=== PATIENT | female | born 1990 | race American Indian/Alaskan Native ===

== ENCOUNTER 2018-02-08 21:18 | Emergency (ER) | payer SELFPAY ==
[2018-02-08 22:06] LABS: Basophils # (Auto) 0.1 K/mm3 (0.0-0.1); Basophils % (Auto) 0.7 % (0.0-1.8); Eosinophils % (Auto) 0.4 % (0.0-4.3); Hematocrit 40.6 % (30.3-42.9); Hemoglobin 13.7 gm/dl (10.1-14.3); Lymphocytes # (Auto) 2.7 K/mm3 (1.2-5.4); Lymphocytes % (Auto) 28.4 % (13.4-35.0); Mean Corpuscular HGB Conc 34 % (30-34); Mean Corpuscular Hemoglobin 30 pg (28-32); Mean Corpuscular Volume 89 fl (79-97); Monocytes # (Auto) 0.8 K/mm3 (0.0-0.8); Monocytes % (Auto) 8.6 % (0.0-7.3); Platelet Count 216 K/mm3 (140-440); Red Blood Count 4.57 M/mm3 (3.65-5.03)
[2018-02-08 22:25] LABS: Alanine Aminotransferase 7 units/L (7-56); Albumin 4.4 g/dL (3.9-5); BUN/Creatinine Ratio 14; Blood Urea Nitrogen 7 mg/dL (7-17); Hemolysis Index 3; Lipase 20 units/L (13-60)
[2018-02-08 22:30] LABS: Bacteria,Urine 1+ /HPF (Negative); Bilirubin,Urine NEG (Negative); Blood,Urine NEG (Negative); Color,Urine Amber (Yellow); Mucus,Urine 2+ /HPF
[2018-02-08] MEDS ORDERED: ZOFRAN IV ONE (22:34)
[2018-02-08] MEDS ORDERED: D5NS 1,000 ML IV SCH (23:00)
[2018-02-08] MEDS ORDERED: PEPCID IV ONE (23:10)
--- NOTE | 2018-02-08 23:11 | Emergency Department Report ---
ED N/V/D HPI - General Chief complaint: Nausea/Vomiting/Diarrhea Stated complaint: VOMITING Time Seen by Provider: 02/08/18 22:11 Source: patient Mode of arrival: Ambulatory Limitations: No Limitations - History of Present Illness Initial comments: 28-year-old female with no past medical or abdominal surgical history presents to the hospital complaints of nausea, vomiting, and diarrhea 1 week. Other members in the household had similar symptoms but hers are more persistent. Patient also states she might be with LMP 12/07/2017. Patient has mild occasional specks of blood in her vomitus but denies hung hematemesis, hematochezia, melena, fever, or dysuria. She has mild stabbing intermittent pain to her upper abdomen. She denies recent travel or antibiotic use. - Related Data Previous Rx's Medication Instructions Recorded Last Taken Type Famotidine [Pepcid] 20 mg PO BID #20 tablet 02/09/18 Unknown Rx Ondansetron [Zofran Odt] 4 mg PO Q8HR PRN #20 tab.rapdis 02/09/18 Unknown Rx Vit Calc,Iron,Folic 1 each PO DAILY #30 tablet 02/09/18 Unknown Rx [ Vitamins] Allergies Allergy/AdvReac Type Severity Reaction Status Date / Time No Known Allergies Allergy Unverified 02/08/18 21:43 ED Review of Systems ROS: Stated complaint: VOMITING Other details as noted in HPI Comment: All other systems reviewed and negative ED Past Medical Hx - Past Medical History Previous Medical History?: No - Surgical History Past Surgical History?: No Additional Surgical History: tonsillectomy/adnoids - Social History Smoking Status: Never Smoker Substance Use Type: None - Medications Home Medications: Home Medications Medication Instructions Recorded Confirmed Last Taken Type Famotidine [Pepcid] 20 mg PO BID #20 tablet 02/09/18 Unknown Rx Ondansetron [Zofran Odt] 4 mg PO Q8HR PRN #20 tab.rapdis 02/09/18 Unknown Rx Vit Calc,Iron,Folic 1 each PO DAILY #30 tablet 02/09/18 Unknown Rx [ Vitamins] ED Physical Exam - General Limitations: No Limitations - Other Other exam information: General: No limitations, patient is alert in no acute distress Head exam: Atraumatic, normocephalic Eyes exam: Normal appearance, nonicteric sc;rosario ENT: Dry mucous membrane Neck exam: Normal inspection, full range of motion, no meningismus nontender Respiratory exam: Clear to auscultation bilateral, no wheezes, rales, crackles Cardiovascular: Normal rate and rhythm, normal heart sounds Abdomen: Soft, nondistended, mild epigastric tenderness, with normal bowel sounds, no rebound, or guarding Extremity: Full range of motion normal inspection no deformity Back: Normal Inspection, full range of motion, no tenderness Neurologic: Alert, oriented x3, cranial nerves intact, no motor or sensory deficit Psychiatric: normal affect, normal mood Skin: Warm, dry, intact ED Course Vital Signs 02/08/18 02/08/18 02/08/18 21:40 22:44 22:54 Temperature 97.8 F Pulse Rate 72 Respiratory 18 Rate Blood Pressure 130/70 121/73 121/73 O2 Sat by Pulse 100 99 Oximetry 02/08/18 02/09/18 02/09/18 23:00 00:47 00:48 Temperature 99 F Pulse Rate Respiratory 16 Rate Blood Pressure 121/73 O2 Sat by Pulse 98 99 Oximetry - Reevaluation(s) Reevaluation #1: 02/09/18 00:36 Subchorionic hemorrhage on ultrasound. Patient states her blood type was A negative. Type and screen and ED RhoGAM. Patient reports feeling better and denies nausea or pain at this time 02/09/18 00:41 feeling better with ED tx. n/v/pain resolved ED Medical Decision Making - Lab Data Result diagrams: 02/08/18 21:51 02/08/18 21:51 Lab Results 02/08/18 02/08/18 02/08/18 Range/Units 21:51 21:51 21:51 WBC 9.4 (4.5-11.0) K/mm3 RBC 4.57 (3.65-5.03) M/mm3 Hgb 13.7 (10.1-14.3) gm/dl Hct 40.6 (30.3-42.9) % MCV 89 (79-97) fl MCH 30 (28-32) pg MCHC 34 (30-34) % RDW 14.0 (13.2-15.2) % Plt Count 216 (140-440) K/mm3 Lymph % (Auto) 28.4 (13.4-35.0) % [place] % (Auto) 8.6 H (0.0-7.3) % Eos % (Auto) 0.4 (0.0-4.3) % Baso % (Auto) 0.7 (0.0-1.8) % Lymph # 2.7 (1.2-5.4) K/mm3 [place] # 0.8 (0.0-0.8) K/mm3 Eos # 0.0 (0.0-0.4) K/mm3 Baso # 0.1 (0.0-0.1) K/mm3 Seg Neutrophils % 61.9 (40.0-70.0) % Seg Neutrophils # 5.8 (1.8-7.7) K/mm3 Sodium 134 L (137-145) mmol/L Potassium 4.1 (3.6-5.0) mmol/L Chloride 96.6 L (98-107) mmol/L Carbon Dioxide 22 (22-30) mmol/L Anion Gap 20 mmol/L BUN 7 (7-17) mg/dL Creatinine 0.5 L (0.7-1.2) mg/dL Estimated GFR > 60 ml/min BUN/Creatinine Ratio 14 % Glucose 78 (65-100) mg/dL Calcium 9.0 (8.4-10.2) mg/dL Total Bilirubin 0.50 (0.1-1.2) mg/dL AST 13 (5-40) units/L ALT 7 (7-56) units/L Alkaline Phosphatase 71 (35-129) units/L Total Protein 7.7 (6.3-8.2) g/dL Albumin 4.4 (3.9-5) g/dL Albumin/Globulin Ratio 1.3 % Lipase 20 (13-60) units/L HCG, Quant [id number] H (0-4) mIU/mL Urine Color (Yellow) Urine Turbidity (Clear) Urine pH (5.0-7.0) Ur Specific [place] (1.003-1.030) Urine Protein (Negative) mg/dL Urine Glucose (UA) (Negative) mg/dL Urine Ketones (Negative) mg/dL Urine Blood (Negative) Urine Nitrite (Negative) Urine Bilirubin (Negative) Urine Urobilinogen (<2.0) mg/dL Ur Leukocyte Esterase (Negative) Urine WBC (Auto) (0.0-6.0) /HPF Urine RBC (Auto) (0.0-6.0) /HPF U Epithel Cells (Auto) (0-13.0) /HPF Urine Bacteria (Auto) (Negative) /HPF Urine Mucus /HPF 02/08/18 Range/Units Unknown WBC (4.5-11.0) K/mm3 RBC (3.65-5.03) M/mm3 Hgb (10.1-14.3) gm/dl Hct (30.3-42.9) % MCV (79-97) fl MCH (28-32) pg MCHC (30-34) % RDW (13.2-15.2) % Plt Count (140-440) K/mm3 Lymph % (Auto) (13.4-35.0) % [place] % (Auto) (0.0-7.3) % Eos % (Auto) (0.0-4.3) % Baso % (Auto) (0.0-1.8) % Lymph # (1.2-5.4) K/mm3 [place] # (0.0-0.8) K/mm3 Eos # (0.0-0.4) K/mm3 Baso # (0.0-0.1) K/mm3 Seg Neutrophils % (40.0-70.0) % Seg Neutrophils # (1.8-7.7) K/mm3 Sodium (137-145) mmol/L Potassium (3.6-5.0) mmol/L Chloride (98-107) mmol/L Carbon Dioxide (22-30) mmol/L Anion Gap mmol/L BUN (7-17) mg/dL Creatinine (0.7-1.2) mg/dL Estimated GFR ml/min BUN/Creatinine Ratio % Glucose (65-100) mg/dL Calcium (8.4-10.2) mg/dL Total Bilirubin (0.1-1.2) mg/dL AST (5-40) units/L ALT (7-56) units/L Alkaline Phosphatase (35-129) units/L Total Protein (6.3-8.2) g/dL Albumin (3.9-5) g/dL Albumin/Globulin Ratio % Lipase (13-60) units/L HCG, Quant (0-4) mIU/mL Urine Color [place]asha (Yellow) Urine Turbidity Clear (Clear) Urine pH 6.0 (5.0-7.0) Ur Specific [place] 1.030 (1.003-1.030) Urine Protein 30 mg/dl (Negative) mg/dL Urine Glucose (UA) Neg (Negative) mg/dL Urine Ketones 20 (Negative) mg/dL Urine Blood Neg (Negative) Urine Nitrite Neg (Negative) Urine Bilirubin Neg (Negative) Urine Urobilinogen 4.0 (<2.0) mg/dL Ur Leukocyte Esterase Mod (Negative) Urine WBC (Auto) 4.0 (0.0-6.0) /HPF Urine RBC (Auto) 4.0 (0.0-6.0) /HPF U Epithel Cells (Auto) 39.0 H (0-13.0) /HPF Urine Bacteria (Auto) 1+ (Negative) /HPF Urine Mucus 2+ /HPF - Radiology Data Radiology results: report reviewed Transvaginal/pelvic OB ultrasound IMPRESSION: Single live IUP. Estimated gestational age 9 weeks 4 days. Estimated delivery date September 09, 2018. Small subchorionic hemorrhage. ABD US No acute findings - Medical Decision Making Nausea, vomiting, and diarrhea likely secondary to viral gastroenteritis given the multiple family members with similar symptoms recently. Patient's symptoms likely persisting secondary to newly diagnosed . Subchorionic hemorrhage identified. No posterior vaginal bleeding. ED RhoGAM and type and screen ordered since Blood type confirmed A- - Differential Diagnosis , hyperemesis, gastroenteritis, infection Critical Care Time: No Critical care attestation.: If time is entered above; I have spent that time in minutes in the direct care of this critically ill patient, excluding procedure time. ED Disposition Clinical Impression: Gastroenteritis, 9 weeks gestation of , Subchorionic hematoma in first trimester, Need for rhogam due to Rh negative mother Disposition: DC-01 TO HOME OR SELFCARE Is pt being admited?: No Does the pt Need Aspirin: No Condition: Stable Instructions: (ED), Gastroenteritis (ED) Additional Instructions: Take Tylenol as needed for pain. You received a RhoGAM shot in the ER because there is some blood in your uterus. You may notice vaginal spotting if the blood exits the uterus through your vagina. You need to return to the ER immediately if bleeding is greater than 1 pad per hour or have significant abdominal pain. Otherwise follow-up with your [facility] doctor with the doctor provided for further evaluation and treatment. Return if symptoms worsen as indicated by your discharge instructions Prescriptions: Famotidine [Pepcid] 20 mg PO BID #20 tablet Ondansetron [Zofran Odt] 4 mg PO Q8HR PRN #20 tab.rapdis PRN Reason: Nausea And Vomiting Vit Calc,Iron,Folic [ Vitamins] 1 each PO DAILY #30 tablet Referrals: KASIE SMITH MD [Primary Care Provider] - 3-5 Days TOM FRASER MD [Staff Physician] - 3-5 Days Time of Disposition: 01:39 (d/c after rhogam)
--- NOTE | 2018-02-09 00:24 | Ultrasound Report ---
FINAL REPORT EXAM: US ABDOMEN COMPLETE HISTORY: n,v COMPARISON: None available. TECHNIQUE: Several real-time grayscale and color Doppler images were obtained. FINDINGS: Homogeneous echogenicity the visualized portions of the liver. Visualized aorta is normal in caliber. No shadowing gallstones or gallbladder wall thickening. The common bile duct measures 2 millimeters within normal limits. Visualized portions the pancreas unremarkable. The spleen measures 10.2 centimeters in length within normal limits. Right kidney measures 11.3 centimeters in length. Left kidney measured 10.9 centimeters in length. No gross focal renal lesion hydronephrosis. Visualized portal vein is patent. IMPRESSION: No acute abdominal organ abnormality.
--- NOTE | 2018-02-09 00:27 | Ultrasound Report ---
FINAL REPORT EXAM: US OB < = 14 WEEKS FETUS HISTORY: n,v COMPARISON: None available. TECHNIQUE: Several real-time grayscale and color Doppler images were obtained. Transabdominal and transvaginal exam. FINDINGS: The uterus measures 11.1 x 6.4 x 8.3 centimeters. Single live IUP. Estimated gestational age 9 weeks 4 days. Estimated delivery date September 09, 2018. heart rate 165 beats per minute. Yolk sac is present. Small subchorionic hemorrhage measuring 0.9 x 1.5 x 1.7 centimeters at the inferior margin of the gestational sac. The cervix is closed. No adnexal masses are demonstrated. Ovaries are not visualized. IMPRESSION: Single live IUP. Estimated gestational age 9 weeks 4 days. Estimated delivery date September 09, 2018. Small subchorionic hemorrhage.
--- NOTE | 2018-02-09 00:27 | Ultrasound Report ---
FINAL REPORT EXAM: US OB TRANSVAGINAL HISTORY: n,v COMPARISON: None available. TECHNIQUE: Several real-time grayscale and color Doppler images were obtained. Transabdominal and transvaginal exam. FINDINGS: The uterus measures 11.1 x 6.4 x 8.3 centimeters. Single live IUP. Estimated gestational age 9 weeks 4 days. Estimated delivery date September 09, 2018. heart rate 165 beats per minute. Yolk sac is present. Small subchorionic hemorrhage measuring 0.9 x 1.5 x 1.7 centimeters at the inferior margin of the gestational sac. The cervix is closed. No adnexal masses are demonstrated. Ovaries are not visualized. IMPRESSION: Single live IUP. Estimated gestational age 9 weeks 4 days. Estimated delivery date September 09, 2018. Small subchorionic hemorrhage.
[2018-02-09 00:48] VITALS: BP 121/73
== END 2018-02-09 02:18 | disposition home or self-care (01) ==
LOC: ED 21:18
DX: O26.891 Other specified pregnancy related conditions, first trimester (principal); K52.9 Noninfective gastroenteritis and colitis, unspecified; Z3A.09 9 weeks gestation of pregnancy
CPT/HCPCS: 36415; 76700; 76801; 76817; 80053; 81001; 83690; 84702; 85025; 86850; 86900; 86901; 96365; 96375; 99284; J2405; J2790; J7042

== ENCOUNTER 2018-06-25 16:21 | Outpatient (CLI) | payer OTHER ==
[2018-06-25 16:48] VITALS: BP 102/51
[2018-06-25 17:46] LABS: Bacteria,Urine 2+ /HPF (Negative); Bilirubin,Urine NEG (Negative); Blood,Urine NEG (Negative); Calcium Oxalate Crystals,Urine 2+; Color,Urine Amber (Yellow); Mucus,Urine 2+ /HPF
== END 2018-06-25 18:17 | disposition home or self-care (01) ==
LOC: TRG 16:21
PROVIDERS: ATTEND Obstetrics & Gynecology
DX: O26.893 Other specified pregnancy related conditions, third trimester (principal); N89.8 Other specified noninflammatory disorders of vagina; Z3A.28 28 weeks gestation of pregnancy
CPT/HCPCS: 59025; 81001

== ENCOUNTER 2020-08-30 12:02 | Inpatient (IN) | payer OTHER, SELFPAY ==
[2020-08-30] MEDS ORDERED: LACTATED RINGERS 1,000 ML IV SCH ×2 (14:00→16:00)
[2020-08-30 14:19] LABS: Basophils % (Auto) 0.6 % (0.0-1.8); Eosinophils % (Auto) 0.5 % (0.0-4.3); Hematocrit 35.4 % (30.3-42.9); Lymphocytes # (Auto) 1.9 K/mm3 (1.2-5.4); Lymphocytes % (Auto) 27.2 % (13.4-35.0); Mean Corpuscular HGB Conc 34 % (30-34); Mean Corpuscular Volume 91 fl (79-97); Monocytes # (Auto) 0.6 K/mm3 (0.0-0.8); Monocytes % (Auto) 8.7 % (0.0-7.3); Platelet Count 172 K/mm3 (140-440); Red Blood Count 3.89 M/mm3 (3.65-5.03); Red Cell Distribution Width 14.3 % (13.2-15.2)
[2020-08-30] MEDS ORDERED: ACETAMINOPHEN 500 MG TAB PO ONE (15:24)
[2020-08-30 15:43] LABS: Hepatitis C Virus Antibody Non-Reactive (NonReactive)
[2020-08-30] MEDS ORDERED: LIDOCAINE (2%) 20 MG/1 ML VIAL 20 ML MDV INFILTRATI ONE (16:00)
[2020-08-30] MEDS ORDERED: ONDANSETRON 4 MG/2 ML INJ IV PRN ×2 (16:00→16:48)
[2020-08-30] MEDS ORDERED: NALOXONE 0.4 MG/1 ML INJ IV PRN (16:00)
[2020-08-30] MEDS ORDERED: ACETAMINOPHEN 500 MG TAB PO PRN ×3 (16:00→23:36)
[2020-08-30] MEDS ORDERED: fentaNYL 100 MCG/2 ML INJ IV PRN (16:00)
[2020-08-30] MEDS ORDERED: TERBUTALINE 1 MG/1 ML INJ SUB-Q PRN (16:00)
[2020-08-30] MEDS ORDERED: ePHEDrine SULFATE 50 MG/1 ML INJ IV PRN (16:00)
[2020-08-30] MEDS ORDERED: OXYTOCIN DRIP 30 UNITS/500 ML BAG IV SCH (16:00)
[2020-08-30] MEDS ORDERED: CARBOPROST TROMETHAMINE 250 MCG/1 ML INJ IM PRN (16:00)
[2020-08-30] MEDS ORDERED: OXYTOCIN 10 UNIT/1 ML INJ IM PRN (16:00)
[2020-08-30] MEDS ORDERED: METHYLERGONOVINE MALEATE 0.2 MG/ML VIAL IM PRN (16:00)
[2020-08-30] MEDS ORDERED: LOPERAMIDE 2 MG CAP PO PRN (16:00)
[2020-08-30] MEDS ORDERED: MINERAL OIL 30 ML ORAL LIQD PO PRN (16:00)
[2020-08-30] MEDS ORDERED: PROMETHAZINE 25 MG TAB PO PRN ×2 (16:00→16:48)
--- NOTE | 2020-08-30 16:18 | History and Physical Report ---
History of Present Illness Date of examination: 08/30/20 Date of admission: 08/30/2020 Chief complaint: I've been having ctxs. History of present illness: Pt is a 30 y.o. @ unknown gestation d/t no PNC. Ultrasound ordered and showed 35.1 wks with EDC of 10/03/2020. Pt has no medical history. Surgical history, tonsils removed as a child. Denies drug and alcohol use. Has never smoked. Denies abnormal PAPs. X 5, all term with no complications. States that she wants to give this infant up for adoption. She is a single mother. Past History Past Medical History: no pertinent history Past Surgical History: tonsillectomy Family/Genetic History: none Social history: single - Obstetrical History Expected Date of Delivery: 10/03/20 (By ultrasound in triage today) Actual Gestation: 35 Week(s) 1 Day(s) : 6 Para: 5 Hx # Term Pregnancies: 5 Number of Pregnancies: 0 Spontaneous Abortions: 0 Induced : 0 Number of Living Children: 5 Medications and Allergies Allergies Allergy/AdvReac Type Severity Reaction Status Date / Time No Known Allergies Allergy Verified 08/30/20 12:43 Home Medications Medication Instructions Recorded Confirmed Last Taken Type Famotidine [Pepcid] 20 mg PO BID #20 tablet 02/09/18 Unknown Rx Ondansetron [Zofran Odt] 4 mg PO Q8HR PRN #20 tab.rapdis 02/09/18 Unknown Rx Vit Calc,Iron,Folic 1 each PO DAILY #30 tablet 02/09/18 Unknown Rx [ Vitamins] Ampicillin 500 mg PO Q6H #14 capsule 06/25/18 Unknown Rx Active Meds: Active Medications Acetaminophen (Tylenol) 1,000 mg PO Q6H PRN PRN Reason: Pain, Mild (1-3) Carboprost Tromethamine (Hemabate) 250 mcg IM ONCE PRN PRN Reason: Uterine Bleeding Ephedrine Sulfate (Ephedrine Sulfate) 10 mg IV Q2M PRN PRN Reason: Hypotension Fentanyl (Sublimaze) 100 mcg IV Q2H PRN PRN Reason: Pain,Severe (7-10) LABOR PAIN Lactated Ringer's (Lactated Ringers) 1,000 mls @ 150 mls/hr IV DIRECT PAMELA Lactated Ringer's (Lactated Ringers) 1,000 mls @ 125 mls/hr IV DIRECT PAMELA Oxytocin/Sodium Chloride (Pitocin/Ns 30 Unit/500ml) 30 units in 500 mls @ 40 mls/hr IV TITR PAMELA; Protocol Ampicillin Sodium (Ampicillin/Ns 2 Gm/100 Ml) 2 gm in 100 mls @ 100 mls/hr IV ONCE ONE; Protocol Stop: 08/30/20 17:59 Loperamide HCl (Imodium) 2 mg PO ONCE PRN PRN Reason: give with Hemabate Methylergonovine Maleate (Methergine) 0.2 mg IM ONCE PRN PRN Reason: Uterine Bleeding Mineral Oil (Mineral Oil) 30 ml PO QHS PRN PRN Reason: Constipation Naloxone HCl (Naloxone) 0.1 mg IV Q2MIN PRN PRN Reason: Res Rate </= 8 or 02 SAT < 92% Ondansetron HCl (Zofran) 4 mg IV Q8H PRN PRN Reason: Nausea And Vomiting Oxytocin (Pitocin) 10 unit IM ONCE PRN PRN Reason: Uterine Bleeding Promethazine HCl (Phenergan) 25 mg PO Q6H PRN PRN Reason: Nausea And Vomiting Terbutaline Sulfate (Brethine) 0.25 mg SUB-Q ONCE PRN PRN Reason: Hyperstimulation/Hypertonicity Review of Systems All systems: negative - Vital Signs Vital signs: Vital Signs Pulse Pulse Ox 56 L 100 08/30/20 12:41 08/30/20 12:41 Temp Pulse Resp BP Pulse Ox 98.2 F 55 L 20 132/72 100 08/30/20 12:44 08/30/20 15:13 08/30/20 12:44 08/30/20 12:45 08/30/20 15:13 - Physical Exam Breasts: Positive: deferred Cardiovascular: Regular rate Lungs: Positive: Normal air movement Abdomen: Positive: normal appearance, soft Genitourinary (Female): Positive: normal external genitalia, normal perenium Vulva: both: normal Vagina: Positive: normal moisture. Negative: discharge Cervix: Negative: lesion, discharge Uterus: Positive: normal size, normal contour Adnexa: both: normal Anus/Rectum: Positive: normal perianal skin, heme negative. Negative: rectal mass, hemorrhoids Extremities: Positive: normal Deep Tendon Reflex Grade: Normal +2 - Obstetrical FHR: category 1 Uterine Contraction Monitor Mode: External Cervical Dilatation: 6 Cervical Effacement Percentage: 100 station: -2 Uterine Contraction Pattern: Regular Uterine Tone Measurement Phase: Resting Uterine Contraction Intensity: Moderate Results Result Diagrams: 08/30/20 14:01 Abnormal lab results 08/30/20 Range/Units 14:01 [place] % (Auto) 8.7 H (0.0-7.3) % All other labs normal. GBS UNKNOWN LABS DRAWN ON ADMISSION Assessment and Plan A: 30 y.o. @35.1 wks by today's triage u/s in active labor. Ce rvical exam /-2. P: Will admit to labor and delivery for active labor, expectant manag ement. Antibiotics for GBS unknown. Consult case management for placement and mother with no PNC. - Patient Problems (1) labor in third trimester Onset Date: ~08/30/20 Current Visit: Yes Status: Acute Qualifiers: labor delivery status: without delivery Qualified Code(s): O60.03 - labor without delivery, third trimester Plan to address problem: Monitor status by EFM. Ultrasound in triage revealed 35.1 wks gestation. Will admit for expectant management. Antibiotics for prophylaxis for GBS unknown and . (2) 35 to 36 weeks gestation of Onset Date: ~08/30/20 Current Visit: Yes Status: Acute Plan to address problem: Monitor maternal and status. (3) No care in current Onset Date: ~08/30/20 Current Visit: Yes Status: Acute Qualifiers: Trimester: third trimester Qualified Code(s): O09.33 - Supervision of with insufficient care, third trimester Plan to address problem: Will place case management consult d/t no PNC and pt wishing to give infant up for adoption.
--- NOTE | 2020-08-30 16:47 | Procedure Note ---
OB Delivery Note - Delivery Date of Delivery: 08/30/20 Digital Marketing Assistant: JUAN CARLOS STEPHENSON Estimated blood loss: 200cc - Vaginal Delivery presentation: vertex Delivery position: OA Intrapartum events: no care, labor-<37 weeks, PROM->1hr before delivery (clear fluid) Delivery induction: none Delivery monitor: external FHT, external uterine Route of delivery: Delivery placenta: spontaneous Delivery cord: 3 umbilical vessels Episiotomy: none Delivery laceration: none Anesthesia: none Delivery comments: Pt with SROM @ 1600 for clear fluid and progressed to complete at 1620. of viable 35.1 wk female over intact perineum. Cord cut and clamped and infant to warmer for assessment by JENNIE team. Spontaneous delivery of placenta, intact, 3 vessel cord, complete, and sent to pathology. Inspection of perineum found no lacerations. Fundus firm, minimal bleeding noted. weight 5-8. Apgars 9,9. EBL 200 ml. Mother holding at this time. Mother and infant left in care of RN, in stable condition. - Infant A at 1 minute: 9 at 5 minutes: 9 Infant Gender: Female
[2020-08-30] MEDS ORDERED: IBUPROFEN 800 MG TAB ONE (16:48)
[2020-08-30] MEDS ORDERED: BENZOCAINE/MENTHOL 20/0.5% TOP SPRAY 56 GM TP PRN (16:48)
[2020-08-30] MEDS ORDERED: WITCH HAZEL/ GLYCERIN PAD TP PRN (16:48)
[2020-08-30] MEDS ORDERED: diphenhydrAMINE 25 MG CAP PO PRN (16:48)
[2020-08-30] MEDS ORDERED: LANOLIN/ZINC/DIMETHICONE (LANSINOH) 7 GM TP PRN (16:48)
[2020-08-30] MEDS ORDERED: MAGNESIUM HYDROXIDE (MOM) ORAL LIQD UDC PO PRN (16:48)
[2020-08-30] MEDS: IBUPROFEN 800 MG TAB PO SCH (16:50)
[2020-08-30] MEDS ORDERED: AMPICILLIN/NS 2 GM/100 ML 2 GM/100 ML BAG IV ONE (17:00)
--- NOTE | 2020-08-30 17:37 | Consultation ---
Consult Note - Parent Education Additional Comment: Attempted to see mother for consult but alre kami delivered. Attempted to speak with mother regarding POC for 35 week infant, mother on the phone and unable to have conversation. Advised we will check blood glucose levels and evaluate how is feeding since 35 weeks. Mother nodded in agreement.
--- NOTE | 2020-08-30 18:07 | Event Note ---
Date: 08/30/20 (Mother holding ) Case management consult order placed d/t on PNC and possible infant adoption. Initially mother did not want to hold and see infant, but is now holding . Case management aware of patient admission and will come to see patient.
--- NOTE | 2020-08-30 18:46 | Ultrasound Report ---
ULTRASOUND OBSTETRIC FOLLOW-UP ULTRASOUND BIOPHYSICAL PROFILE INDICATION / CLINICAL INFORMATION: [facility]. Clinical Gestational Age (GA): Unknown COMPARISON: None available. FINDINGS: There is a single intrauterine . Biparietal Diameter = 8.4 cm = 34 weeks. 0 days Head Circumference = 30 cm = 33 weeks. 2 days Abdominal Circumference = 32.6 cm = 36 weeks. 4 days Femur Length = 7.1 cm = 36 weeks. 4days Average Ultrasound Age (AUA) = 35 weeks. 1 days Estimated Weight in grams (if calculated): 2785 Position: cephalic. Cervix: Incompletely visualized on this exam. Placenta: Grade 2, fundal, and free of the os. Amniotic Fluid Volume: normal Amniotic Fluid Index (LUCY) in cm (if calculated): 15.8. Maternal Adnexa: No significant abnormality. BREATHING MOVEMENT = 2 GROSS BODY MOVEMENT = 2 TONE = 2 QUALITATIVE AMNIOTIC FLUID VOLUME = 2 TOTAL BIOPHYSICAL SCORE = 8/8 HEART RATE (beats per minute): 140 ADDITIONAL FINDINGS: None. IMPRESSION: 1. Single viable intrauterine with average ultrasound age of 35 weeks 1 day. 2. Biophysical Score = 8/8 Signer Name: Vince Stout MD Signed: 08/30/2020 6:42 PM Workstation Name: [id number]
[2020-08-30 19:05] LABS: Bilirubin,Urine NEG (Negative); Blood,Urine LG (Negative); Color,Urine Red (Yellow)
[2020-08-30 19:08] LABS: Amphetamine Screen,Urine Negative; Benzodiazepines Screen,Urine Negative; Cocaine Screen,Urine Negative; Methadone Screen,Urine Negative; Opiate Screen,Urine Negative; RBC,Urine > 182.0 /HPF (0.0-6.0)
[2020-08-30 19:33] LABS: Cannabinoid Screen,Urine Positive
[2020-08-30] MEDS ORDERED: ACETAMINOPHEN W/CODEINE 300-30 MG TAB PO ONE (21:18)
[2020-08-30] MEDS: DOCUSATE SODIUM 100 MG CAP PO SCH (21:29)
[2020-08-31] MEDS ORDERED: ACETAMINOPHEN 500 MG TAB PO SCH (03:00)
[2020-08-31 05:20] LABS: Hematocrit 32.7 % (30.3-42.9); Hemoglobin 11.1 gm/dl (10.1-14.3)
[2020-08-31] MEDS ORDERED: DIPHtheria,PERTUSSIS(ACELL),TETANUS VACCINE/PF 0.5 ML VIAL IM ONE (06:00)
[2020-08-31] MEDS: PRENATAL VIT27-FE FUMARATE-FOLIC ACID VIT TAB PO SCH (09:05)
[2020-08-31] MEDS: IBUPROFEN 800 MG TAB PO SCH ×2 (09:05→18:00)
[2020-08-31] MEDS: DOCUSATE SODIUM 100 MG CAP PO SCH (09:05)
--- NOTE | 2020-08-31 13:38 | Progress Note ---
Assessment and Plan Probably allow home tomorrow She desires sterilization - Patient Problems (1) No care in current Onset Date: ~08/30/20 Current Visit: Yes Status: Acute Qualifiers: Trimester: third trimester Qualified Code(s): O09.33 - Supervision of with insufficient care, third trimester (2) Spontaneous vaginal delivery Current Visit: Yes Status: Acute Subjective - Subjective Date of service: 08/31/20 Principal diagnosis: PPD #1 s/p , NPC Patient reports: appetite normal, voiding normally, pain well controlled, ambulating normally Objective - Vital Signs Latest vital signs: Vital Signs Temp Pulse Resp BP BP Pulse Ox 08/31/20 10:14 97.9 F 61 18 120/63 98 08/31/20 04:33 97.9 F 46 L 20 128/65 100 08/31/20 00:41 97.7 F 56 L 20 125/76 100 08/30/20 21:30 18 08/30/20 20:25 97.6 F 57 L 20 111/68 96 08/30/20 17:50 68 131/64 08/30/20 17:35 57 L 127/67 08/30/20 17:20 51 L 116/66 08/30/20 17:04 56 L 131/61 08/30/20 16:35 74 113/64 08/30/20 16:33 98.3 F 74 16 113/64 98 08/30/20 15:13 55 L 100 08/30/20 15:08 62 100 08/30/20 15:03 62 100 08/30/20 14:58 61 100 08/30/20 14:53 55 L 100 08/30/20 14:48 66 100 08/30/20 14:43 54 L 99 08/30/20 14:38 61 99 08/30/20 14:33 57 L 99 08/30/20 14:28 55 L 99 08/30/20 14:23 58 L 100 08/30/20 14:18 61 99 08/30/20 14:13 59 L 99 08/30/20 14:08 62 100 08/30/20 14:03 60 99 08/30/20 13:58 60 100 08/30/20 13:53 58 L 99 08/30/20 13:48 64 100 08/30/20 13:43 64 99 08/30/20 13:39 60 90 08/30/20 13:36 56 L 99 Intake and Output 08/30/20 08/31/20 08/31/20 22:59 06:59 14:59 Intake Total 200 440 240 Output Total 200 1000 Balance 0 -560 240 Intake: Oral 200 440 240 Output: Urine 200 1000 Void 200 1000 Other: Total, Intake Amount 200 200 240 Total, Output Amount 200 600 # Voids Void 1 Estimated Blood Loss 200 - Exam Breasts: Present: deferred (Presently breast feeding) Lungs: Present: Normal air movement Abdomen: Present: normal appearance, soft. Absent: distention, tenderness Uterus: Present: fundal height below umbilicus. Absent: tenderness Extremities: Present: normal. Absent: tenderness, edema - Labs Labs: Abnormal lab results 08/30/20 08/30/20 Range/Units 14:01 18:07 [place] % (Auto) 8.7 H (0.0-7.3) % Urine pH 8.0 H (5.0-7.0) Urine WBC (Auto) 22.0 H (0.0-6.0) /HPF
[2020-09-01] MEDS: IBUPROFEN 800 MG TAB PO SCH ×2 (02:01→10:24)
[2020-09-01] MEDS: DOCUSATE SODIUM 100 MG CAP PO SCH ×2 (02:01→10:24)
[2020-09-01] MEDS: PRENATAL VIT27-FE FUMARATE-FOLIC ACID VIT TAB PO SCH (10:24)
--- NOTE | 2020-09-01 12:41 | Discharge Summary ---
Providers - Providers Date of Admission: 08/30/20 16:49 Date of discharge: 09/01/20 Attending physician: TIO ESPINOZA 08/30/20 16:18 Consult to Case Management [CONS] Urgent Services Needed at Discharge: Gender Studies Professor Notified:: Jo Phone number called:: [phone] Was contact made?: Yes If yes, spoke with:: Jo Time called:: 16:15 Additional Physician Instructions: Pt is no PNC and putting infant up for adoption. 08/30/20 16:20 Consult to Physician [CONS] Urgent Comment: Consulting Provider: KRISTOPHER CAMPBELL Physician Instructions: Pt is no PNC, u/s putting gestation at 35.1 wks Reason For Exam: No PNC, labor Primary care physician: FREIGHT INSPECTOR Hospitalization Reason for admission: active labor Delivery: Episiotomy: none Laceration: none complications: none Discharge diagnosis: IUP at term delivered Mcdonald baby: female Hospital course: Normal. Patient complains of ? ear infection after having Covid-19 swab performed o/w desires d/c home Condition at discharge: Good Disposition: DC-01 TO HOME OR SELFCARE - Discharge Diagnoses (1) No care in current Status: Acute Qualifiers: Trimester: third trimester Qualified Code(s): O09.33 - Supervision of with insufficient care, third trimester (2) Spontaneous vaginal delivery Status: Acute (3) Sterilization Status: Acute (4) Otitis Status: Acute Qualifiers: Laterality: right Qualified Code(s): H66.91 - Otitis media, unspecified, right ear Plan - Discharge Medications Prescriptions: Amoxicillin [Trimox CAP] 500 mg PO Q8H #15 capsule - Provider Discharge Summary Activity: routine, no sex for 6 weeks, no heavy lifting 4 weeks, no strenuous exercise Diet: routine Instructions: routine Additional instructions: [] Smoking cessation referral if applicable(refer to patient education folder for contact #) [] Refer to [facility] Booklet Call your doctor immediately for: * Fever > 100.5 * Heavy vaginal bleeding ( >1 pad per hour) * Severe persistent headache * Shortness of breath * Reddened, hot, painful area to leg or breast * Drainage or odor from incision. * Keep incision clean and dry at all times and follow doctor's instructions regarding bathing/showering - Follow up plan Follow up: PRIMARY CARE, [Primary Care Provider] - 7 Days TIO ESPINOZA MD [Staff Physician] - 10 Days
[2020-09-01 16:38] VITALS: BP 115/70
== END 2020-09-01 17:00 | disposition home or self-care (01) | DRG 807 ==
LOC: TRG 12:02 → APU 12:04 → TRG 16:10 → LD 16:49 → OB 20:38
PROVIDERS: ADMIT Obstetrics & Gynecology; ATTEND Obstetrics & Gynecology
PROC: 10E0XZZ Delivery of Products of Conception, External Approach (ICD-10-PCS; principal; 2020-08-30)
PROC: 3E0234Z Introduction of Serum, Toxoid and Vaccine into Muscle, Percutaneous Approach (ICD-10-PCS; 2020-08-31)
PROC: 30233S1 Transfusion of Nonautologous Globulin into Peripheral Vein, Percutaneous Approach (ICD-10-PCS; 2020-08-31)
DX: O60.14X0 Preterm labor third trimester with preterm delivery third trimester, not applicable or unspecified (principal); Z37.0 Single live birth; O42.013 Preterm premature rupture of membranes, onset of labor within 24 hours of rupture, third trimester; Z3A.35 35 weeks gestation of pregnancy; Z20.828 Contact with and (suspected) exposure to other viral communicable diseases; Z23 Encounter for immunization; O99.73 Diseases of the skin and subcutaneous tissue complicating the puerperium; H66.91 Otitis media, unspecified, right ear
CPT/HCPCS: 36415; 76816; 76819; 80307; 81001; 85014; 85018; 85025; 85461; 86592; 86706; 86762; 86803; 86850; 86900; 86901; 87086; 87806; 88307; G0378; J2790; U0003

== ENCOUNTER 2020-12-26 20:42 | Emergency (ER) | payer MEDICAID ==
[2020-12-26] MEDS ORDERED: LIDOCAINE VISCOUS 2% 15 ML ORAL LIQD PO ONE (21:36)
[2020-12-26] MEDS ORDERED: ONDANSETRON 4 MG ODT TAB PO ONE (21:36)
[2020-12-26] MEDS ORDERED: ACETAMINOPHEN 500 MG TAB PO ONE (21:36)
[2020-12-26] MEDS ORDERED: AMOXICILLIN/K CLAV 875/125MG TAB PO ONE (21:37)
--- NOTE | 2020-12-26 21:43 | Emergency Department Report ---
ED General Adult HPI - General Chief complaint: Sore Throat Stated complaint: EAR AND THROAT PAIN Source: patient Mode of arrival: Ambulatory Limitations: No Limitations - History of Present Illness Initial comments: Patient is a 30 yo AA female with no past medical history who presents to the ED with c/o acute onset persistent severe sore throat, dysphagia, drooling, right ear pain and painful swollen anterior right cervical lymph nodes for the last 2 days. Patient also c/o diffuse body aches, chills and fever. Patient states that she has not been able to eat or drink anything since the onset of these symptoms due to severe sore throat. Patient denies dyspnea, nausea, vomiting, chest pain, dizziness, cough, nasal and sinus congestion, abdominal pain, diarrhea or dysuri a, hematuria or urinary urgency and frequency. MD Complaint: Sore throat; right ear pain, anterior cervical lymph node pain -: Sudden, days(s) (2) Location: mouth Radiation: non-radiation Severity scale (0 -10): 8 Quality: burning, aching, sharp, constant Consistency: constant Improves with: none Worsens with: eating, other (swallowing) Associated Symptoms: denies other symptoms, fever/chills, headaches, loss of appetite, malaise. denies: confusion, chest pain, cough, diaphoresis, nausea/vomiting, rash, seizure, shortness of breath, syncope, weakness Treatments Prior to Arrival: none - Related Data Previous Rx's Medication Instructions Recorded Last Taken Type Famotidine [Pepcid] 20 mg PO BID #20 tablet 02/09/18 Unknown Rx Vit Calc,Iron,Folic 1 each PO DAILY #30 tablet 02/09/18 Unknown Rx [ Vitamins] Ampicillin 500 mg PO Q6H #14 capsule 06/25/18 Unknown Rx Acetaminophen [Tylenol] 1,000 mg PO Q6HR PRN #30 tablet 12/26/20 Unknown Rx Amoxicillin [Trimox CAP] 500 mg PO Q8H #30 capsule 12/26/20 Unknown Rx Lidocaine Viscous 2% 10 ml PO Q6H PRN #120 ml 12/26/20 Unknown Rx Ondansetron [Zofran ODT TAB] 4 mg PO Q8HR PRN #20 tab.rapdis 12/26/20 Unknown Rx Allergies Allergy/AdvReac Type Severity Reaction Status Date / Time No Known Allergies Allergy Verified 08/30/20 12:43 ED Review of Systems ROS: Stated complaint: EAR AND THROAT PAIN Other details as noted in HPI Constitutional: chills, fever, malaise Eyes: denies: eye pain, eye discharge, vision change ENT: ear pain (right ear pain), throat pain, congestion Respiratory: denies: cough, shortness of breath, SOB with exertion, wheezing Cardiovascular: denies: chest pain, palpitations Endocrine: no symptoms reported Gastrointestinal: denies: abdominal pain, nausea, diarrhea Genitourinary: denies: urgency, dysuria, discharge Musculoskeletal: arthralgia, myalgia. denies: back pain, joint swelling Skin: denies: rash, lesions Neurological: denies: headache, weakness, paresthesias Psychiatric: denies: anxiety, depression Hematological/Lymphatic: denies: easy bleeding, easy bruising ED Past Medical Hx - Past Medical History Previous Medical History?: No Hx Hypertension: No Hx Congestive Heart Failure: No Hx Diabetes: No Hx Deep Vein Thrombosis: No Hx Renal Disease: No Hx Sickle Cell Disease: No Hx Seizures: No Hx Asthma: No Hx COPD: No Hx HIV: No - Surgical History Past Surgical History?: Yes Additional Surgical History: tonsillectomy/adnoids - Social History Smoking Status: Never Smoker Substance Use Type: None - Medications Home Medications: Home Medications Medication Instructions Recorded Confirmed Last Taken Type Famotidine [Pepcid] 20 mg PO BID #20 tablet 02/09/18 Unknown Rx Vit Calc,Iron,Folic 1 each PO DAILY #30 tablet 02/09/18 Unknown Rx [ Vitamins] Ampicillin 500 mg PO Q6H #14 capsule 06/25/18 Unknown Rx Acetaminophen [Tylenol] 1,000 mg PO Q6HR PRN #30 tablet 12/26/20 Unknown Rx Amoxicillin [Trimox CAP] 500 mg PO Q8H #30 capsule 12/26/20 Unknown Rx Lidocaine Viscous 2% 10 ml PO Q6H PRN #120 ml 12/26/20 Unknown Rx Ondansetron [Zofran ODT TAB] 4 mg PO Q8HR PRN #20 tab.rapdis 12/26/20 Unknown Rx ED Physical Exam - General Limitations: No Limitations General appearance: alert, in no apparent distress, anxious, other (febrile) - Head Head exam: Present: atraumatic, normocephalic, normal inspection - Eye Eye exam: Present: normal appearance, PERRL, EOMI Pupils: Present: normal accommodation - ENT ENT exam: Present: mucous membranes moist, TM's normal bilaterally, normal external ear exam, other (Erythematous swollen right tonsils with drooling; no trismus and uvula is midline) - Neck Neck exam: Present: normal inspection, full ROM, lymphadenopathy (Palpable tender anterior right cervical lymphadenopathy) - Respiratory Respiratory exam: Present: normal lung sounds bilaterally. Absent: respiratory distress, wheezes, rales, rhonchi, chest wall tenderness, accessory muscle use, decreased breath sounds, prolonged expiratory - Cardiovascular Cardiovascular Exam: Present: regular rate, normal rhythm, normal heart sounds. Absent: systolic murmur, diastolic murmur, rubs, gallop - GI/Abdominal GI/Abdominal exam: Present: soft, normal bowel sounds. Absent: tenderness, guarding, rebound, hyperactive bowel sounds, hypoactive bowel sounds, organomegaly - Extremities Exam Extremities exam: Present: normal inspection, full ROM, normal capillary refill - Back Exam Back exam: Present: normal inspection, full ROM. Absent: tenderness, CVA tenderness (R), CVA tenderness (L), muscle spasm, paraspinal tenderness, vertebral tenderness - Neurological Exam Neurological exam: Present: alert, oriented X3, CN II-XII intact, normal gait, reflexes normal - Psychiatric Psychiatric exam: Present: normal affect, normal mood - Skin Skin exam: Present: warm, dry, intact, normal color. Absent: rash ED Course Vital Signs 12/26/20 21:33 Temperature 101.0 F H Pulse Rate 90 Respiratory 19 Rate Blood Pressure 134/69 O2 Sat by Pulse 98 Oximetry ED Medical Decision Making - Medical Decision Making This is a 30 yo AA female with no past medical history who presents to the ED with c/o acute onset persistent severe sore throat, dysphagia, drooling, right ear pain and painful swollen anterior right cervical lymph nodes for the last 2 days. Patient also c/o diffuse body aches, chills and fever. Patient states that she has not been able to eat or drink anything since the onset of these symptoms due to severe sore throat. In the ED, patient is alert and oriented x3 and is not in distress but febrile in triage. Patient was treated for pain in the ED and also given 2% lidocaine viscus solution and oral antibiotics. On reevaluation, patient's fever resolved in the ED the patient pain is well controlled patient is able to drink and eat without any difficulty. Patient was therefore discharged home on antibiotics and pain medications and advised to follow-up with her primary care physician in 7 to 10 days for reevaluation. Patient is advised return to the ED immediately if symptoms get worse. - Differential Diagnosis Strep pharyngitis; Otitis media; URI; Viral syndrome; Tonsillitis Critical care attestation.: If time is entered above; I have spent that time in minutes in the direct care of this critically ill patient, excluding procedure time. ED Disposition Clinical Impression: Acute bacterial pharyngitis, Acute bacterial tonsillitis, Fever and chills, Anterior cervical lymphadenopathy Disposition: TO HOME OR SELFCARE Is pt being admited?: No Does the pt Need Aspirin: No Condition: Stable Instructions: Tonsillitis, [id number], Antibiotic Medicine, Adult, [id number], Lymphadenopathy, Pharyngitis, [id number], Fever, Adult, [id number] Additional Instructions: Take medications with food, drink plenty of fluids and follow up with your Primary care physician in 7-10 days for reevaluation. Return to the ED immediately if symptoms get worse. Prescriptions: Acetaminophen [Tylenol] 1,000 mg PO Q6HR PRN #30 tablet PRN Reason: Pain , Severe (7-10) Lidocaine Viscous 2% 10 ml PO Q6H PRN #120 ml PRN Reason: Sore Throat Amoxicillin [Trimox CAP] 500 mg PO Q8H #30 capsule Ondansetron [Zofran ODT TAB] 4 mg PO Q8HR PRN #20 tab.rapdis PRN Reason: Nausea And Vomiting Referrals: [facility] [Provider Group] - 7-10 days Forms: Work/School Release Form(ED) Time of Disposition: 21:48 Print Language: LITHUANIAN
[2020-12-27 00:01] VITALS: BP 111/63
== END 2020-12-27 00:23 | disposition home or self-care (01) ==
LOC: ED 20:42
DX: J02.8 Acute pharyngitis due to other specified organisms (principal); R59.0 Localized enlarged lymph nodes; B96.89 Other specified bacterial agents as the cause of diseases classified elsewhere; R50.9 Fever, unspecified; Z90.89 Acquired absence of other organs; Z98.890 Other specified postprocedural states; Z79.2 Long term (current) use of antibiotics; Z79.899 Other long term (current) drug therapy
CPT/HCPCS: 99282; Q0162